=== PATIENT | female | born 1965 | race Caucasian/White ===

== ENCOUNTER 2017-06-07 07:49 | Emergency (ER) | payer OTHER ==
[~2017-06-07] VITALS: Ht 160 cm; Wt 75.3 kg
[2017-06-07] MEDS ORDERED: SKELAXIN800 MG PO (08:47)
[2017-06-07] MEDS ORDERED: MEDROLPACK PO (08:47)
== END 2017-06-07 09:24 | disposition home or self-care (01) ==
LOC: ER 07:49
DX: M54.5 Low back pain (principal); M51.36 Other intervertebral disc degeneration, lumbar region